=== PATIENT | female | born 1985 ===

== ENCOUNTER 2018-05-11 06:42 | Inpatient (IN) | payer MEDICAID ==
[2018-05-11 07:04] LABS: MEAN CELL VOLUME 91.3 fL (81.0-99.0); MEAN CORPUSCULAR HEMOGLOBIN 30.9 pg (27.0-31.0); MEAN CORPUSCULAR HGB CONC 33.8 g/dL (33.0-37.0); MEAN PLATELET VOLUME 10.2 fL (7.2-11.7); RBC 4.19 Mil/uL (3.80-5.20); RED CELL DISTRIBUTION WIDTH 14.7 % (11.5-14.5); WHITE BLOOD COUNT 6.3 K/uL (4.8-10.8)
[2018-05-11] MEDS ORDERED: Oxytocin 20 units in LR 0 ML IV ONE (07:18)
[2018-05-11] MEDS ORDERED: Sodium Citrate/Citric Acid 15 ml Sol ONE ×2 (07:18→13:57)
[2018-05-11] MEDS ORDERED: cefOXitin IV 2 gm in Saline 0 GM/0 ML BAG IVPB ONE (07:18)
[2018-05-11] MEDS ORDERED: Lactated Ringer's 1,000 ML IV ONE ×3 (07:30→13:18)
[2018-05-11 07:39] LABS: ALB/GLOB RATIO 1.2 (1.0-2.1); ALBUMIN 3.6 g/dL (3.5-5.0); ALT/SGPT 17 U/L (9-52); AST/SGOT 17 U/L (14-36); BLOOD UREA NITROGEN 3 mg/dL (7-17); CALCIUM 8.9 mg/dl (8.6-10.4); GFR AFRICAN-AMERICAN > 60; GFR NON-AFRICAN AMERICAN > 60
[2018-05-11] MEDS ORDERED: ePHEDrine 50 mg/ml Inj ONE (07:49)
[2018-05-11] MEDS ORDERED: Phenylephrine 10 mg/ml Inj ONE (07:49)
[2018-05-11 08:01] LABS: SQUAMOUS EPITHIAL 9 /hpf (0-5); URINE BACTERIA RARE (<OCC); URINE BILIRUBIN NEGATIVE (NEGATIVE); URINE BLOOD NEGATIVE (NEGATIVE); URINE CLARITY Hazy (Clear); URINE COLOR Yellow (YELLOW); URINE GLUCOSE (UA) NORMAL (Normal); URINE LEUKOCYTE ESTERASE NEG Leu/uL (Negative); URINE PROTEIN NEGATIVE (NEGATIVE); URINE UROBILINOGEN NORMAL mg/dL (0.2-1.0)
--- NOTE | 2018-05-11 13:14 | OBADHP ---
Datetime: 05/11/2018 13:08 Admit Comment, IP Provider: at 39weeks he for repeat c/s,no ctxs, vb , lof=fm obhx 1 x c/s pmh de med pnv all nkda psh c/s soch de ap at 39we repeat c/s admit to l_d npo/ivf labs pain ,a anthesia aware skin abs inform con Pelvic Type - PN: Adequate Extremities - PN: Normal Abdomen - PN: Normal Back - PN: Normal Breast - PN: Normal Lungs - PN: Normal Heart - PN: Normal Thyroid - PN: Normal Neurologic - PN: Normal HEENT - PN: Normal General - PN: Normal FHR - Baseline A Provider: 130 Contraction Comments Provider: none Vital Signs Provider: Reviewed; Within Normal Limits IP Chief Complaint: Scheduled Section NICHD Variability Prov Fetus A: Moderate 6-25bpm NICHD Accel Fetus A IP Provider: [id number] FHR Category Provider Fetus A: Category I Genitourinary Exam: Normal DTRs - PN: Normal EGA AdmitDate IP: 39.0 IP Adm Impression: Term, intrauterine IP Admit Plan: Admit to unit; Initiate Section protocol
[2018-05-11] MEDS ORDERED: Oxytocin 20 units in LR 2,000 ML IV ONE (13:57)
[2018-05-11] MEDS ORDERED: cefOXitin IV 2 gm in Saline 2 GM/50 ML BAG IVPB ONE (13:59)
[2018-05-11] MEDS ORDERED: Sodium Citrate/Citric Acid 15 ml Sol PO ONE (14:00)
[2018-05-11] MEDS ORDERED: ceFAZolin 2 GM in Sodium Chloride 0.9% 100 ML IVPB ONE (14:00)
[2018-05-11] MEDS ORDERED: Oxycodone/Acetaminophen 5/325 mg Tab PO PRN ×2 (15:00)
[2018-05-11] MEDS ORDERED: Oxytocin 10 Units/ml Inj ONE (15:03)
[2018-05-11] MEDS ORDERED: Naloxone 0.4 mg/ml Inj (Adult) IVP PRN (15:24)
[2018-05-11] MEDS ORDERED: DiphenhydrAMINE 50 mg/ml Inj IVP PRN (15:24)
[2018-05-11] MEDS ORDERED: cefOXitin IV 2 gm in Dextrose 2 GM/50 ML BAG IVPB ONE (16:45)
[2018-05-11] MEDS: Simethicone 80 mg Chewtab PO SCH ×2 (18:30→21:20)
[2018-05-12 07:54] LABS: HEMOGLOBIN 11.8 g/dL (11.0-16.0); MEAN CORPUSCULAR HEMOGLOBIN 31.2 pg (27.0-31.0); MEAN CORPUSCULAR HGB CONC 34.2 g/dL (33.0-37.0); MEAN PLATELET VOLUME 10.2 fL (7.2-11.7); RBC 3.79 Mil/uL (3.80-5.20); RED CELL DISTRIBUTION WIDTH 14.6 % (11.5-14.5)
[2018-05-12 07:55] LABS: WHITE BLOOD COUNT 12.8 K/uL (4.8-10.8)
[2018-05-12] MEDS: Prenatal Multivit/Folic Acid/Iron Tab PO SCH (10:05)
[2018-05-12] MEDS: Simethicone 80 mg Chewtab PO SCH ×3 (10:05→17:41)
[2018-05-12] MEDS ORDERED: Bisacodyl 5mg EC Tab PO ONE ×2 (15:00→17:45)
--- NOTE | 2018-05-12 22:18 | OBPPN ---
Datetime: 05/12/2018 21:37 PP Pain Prov: Within normal limits PP Nausea Prov: Denies PP Flatus Prov: No PP BM Prov: No PP Breasts Prov: Normal PP Heart Prov: Normal PP Lungs Prov: Normal PP Abdomen/Uterus Prov: Normal PP Lochia Prov: Normal PP Vulva/Perineum Prov: Not Done PP CVA Tenderness Prov: Normal PP Extremities Prov: Normal PP C/S Incision Prov: Normal PP Progress Prov: Normal PP Comments Phys Exam Prov: Breasts: no cracked nipples Abdomen: obese. Soft. Non distended. (+) BS. Incision with lyn - clean, dry and intact. Mild l ochia rubra. Fundus firm, mobile, minimally tender; at umbilicus. Mild lochia rubra Extremities: no calf tenderness All other systems reviewed and are negative PP Impression Prov: Normal progression PP Plan Prov: Continue present management PP Progress Note Prov: Patient seen and evaluated with Resident, Dr. Aquiles Gonzalez, who also served a s girls tennis coach. Patient received in room 453, lying in bed, at approximately 1300 hours: denies nausea, vomiting; ambulating in room; voiding without difficulty. Hungry. . P.E.: as above. Mildy obese, in NAD. Awake, alert, oriented to time, person and place. Pleasant a nd cooperative. FOB present - POD#1 H/H 11.8/34.5; Rh (+) Assessment: POD#1, 32 y.o. P2, S/P repeat C/S. Afebrile, vital signs stable. Returning GI and f unctions. Clinically stable. Plan: 1) continue present management 2) Encourage ambulation Vital Signs Provider PP: Reviewed; Within Normal Limits
[2018-05-13] MEDS: Simethicone 80 mg Chewtab PO SCH ×6 (03:33→22:58)
[2018-05-13] MEDS: Prenatal Multivit/Folic Acid/Iron Tab PO SCH (09:07)
--- NOTE | 2018-05-13 20:59 | OBPPN ---
Datetime: 05/13/2018 20:51 PP Pain Prov: Within normal limits PP Nausea Prov: Denies PP Flatus Prov: Yes PP BM Prov: Yes PP Breasts Prov: Normal PP Heart Prov: Normal PP Lungs Prov: Normal PP Abdomen/Uterus Prov: Normal PP Lochia Prov: Normal PP Vulva/Perineum Prov: Not Done PP CVA Tenderness Prov: Normal PP Extremities Prov: Normal PP C/S Incision Prov: Normal PP Progress Prov: Normal PP Comments Phys Exam Prov: Breasts: inverted left nipple; everted right nipple - nocracks Abdomen: Obese. Soft. (+) BS. Non distended. Fundus firm, mobile, non tender. Incision - clean, dr richie and tintact Extremities: nocalf tenderness All other systems reviewed and are negative PP Impression Prov: Normal progression PP Plan Prov: Continue present management PP Progress Note Prov: Dr. Aquiles Barrett, PGY-1 served as claims auditor Patient received in chair in room 453, . Denies nausea, vomiting, dizziness, lighthea dedness, palpitations; ambulaitng and voiding without difficulty P.E.: as above. WD in NAD. Awake, alert, oriented to time, person and place. Pleasant and cooperat elsi Assessment: POD#2, 32 y.o. P2, S/P repeat C/S. Afebrile, vital signs stable. Clinically stable. Plan: 1) Continue present management 2) Anticipate discharge home 05/14/18 Vital Signs Provider PP: Reviewed; Within Normal Limits
[2018-05-14 08:06] VITALS: BP 102/65; PULSE 65; TEMP 97.5; O2SAT 99
[2018-05-14] MEDS: Simethicone 80 mg Chewtab PO SCH (09:46)
[2018-05-14] MEDS: Prenatal Multivit/Folic Acid/Iron Tab PO SCH (09:47)
--- NOTE | 2018-05-14 10:01 | OBDCSUM ---
Datetime: 05/14/2018 08:13 Discharged to, Provider: Home Follow up at, Provider: [facility] Disch Instr Activity: Normal activity Disch Instr Diet: Regular Discharge Diet restrict Prov: none Discharge Instructions, Provider: Routine instructions given Discharge Diagnosis, Provider: Term Delivered Discharge Time: 05/14/2018 12:00 Follow up in weeks, Provider: 05/16/2018 Disch Referrals: None Disch Activity Restrictions: No exercising; No lifting; Minimize walking; No sexual activity; Nothin g in vagina - Ingenio, tampons, douche Discharge Comment, Provider: p: d/c home f/u 2-3dyas for staple removal cons f/u today continue pnv motirn for pain Contraception after Delivery: Undecided
--- NOTE | 2018-05-14 10:01 | OBPPN ---
Datetime: 05/14/2018 09:54 PP Pain Prov: Within normal limits PP Nausea Prov: Denies PP Flatus Prov: Yes PP BM Prov: Yes PP Breasts Prov: Normal PP Heart Prov: Normal PP Lungs Prov: Normal PP Abdomen/Uterus Prov: Normal PP Extremities Prov: Normal PP C/S Incision Prov: Normal PP Progress Prov: Normal PP Comments Phys Exam Prov: incision: c/d/i bilateral breast: engorged; mild circumferential edema; no crack/fissure along nipple/areola PP Impression Prov: Normal progression PP Plan Prov: Discharge PP Progress Note Prov: s: no c/o. pain well controlled with motrin. eating well; + i: pod3cd doing well p: d/c home f/u 2-3dyas for staple removal cons f/u today continue pnv motirn for pain IP PP Procedures: None Vital Signs Provider PP: Within Normal Limits
[2018-05-14 18:25] VITALS: RESP 20
== END 2018-05-14 14:20 | disposition home or self-care (01) | DRG 371 ==
LOC: C.4D 06:42 → C.4M 18:30
PROVIDERS: ADMIT Obstetrics & Gynecology; ATTEND Obstetrics & Gynecology
PROC: 10D00Z1 Extraction of Products of Conception, Low, Open Approach (ICD-10-PCS; principal; 2018-05-11)
DX: O34.211 Maternal care for low transverse scar from previous cesarean delivery (principal); O99.214 Obesity complicating childbirth; Z3A.39 39 weeks gestation of pregnancy; Z37.0 Single live birth